=== PATIENT | male | born 2005 | race Caucasian/White ===

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

== ENCOUNTER 2023-01-17 20:27 | Emergency (ER) | payer OTHER, MEDICAID, SELFPAY ==
--- NOTE | ~2023-01-17 | XR_ITS ---
EXAMINATION: XR KNEE, RIGHT CLINICAL INFORMATION: Football injury COMPARISON: None available. TECHNIQUE: Four views of the right knee. FINDINGS: No acute visible fracture or dislocation. Periarticular ossified along the inferior margins patella. A fabella is noted in the posterior compartment. Joint spaces and alignment are otherwise maintained. Trace knee joint effusion. Soft tissues are unremarkable. XR/XR knee RT 3V IMPRESSION: 1. No acute visible fracture or dislocation. 2. Trace knee joint effusion.
[2023-01-17 20:47] VITALS: BP 137/91; PULSE 92; RESP 20; TEMP 36.7; O2SAT 100; BMI 41.9
--- NOTE | 2023-01-17 20:47 | ED_ITS ---
HPI - Extremity Injury (Lower) General Chief Complaint: Extremity Injury, Lower Stated Complaint: right knee pain, injury during football practice Time Seen by Provider: 01/17/23 23:43 Source: patient Mode of arrival: ambulatory Limitations: no limitations History of Present Illness HPI Narrative: Patient comes to the emergency room complaining of right-sided knee pain. Patient states that he was playing football today in college, patient got tackled. Patient states that he has been able to ambulate but hurts doing so. Incident happened today approximately 6 hours ago. Related Data Allergies Allergy/AdvReac Type Severity Reaction Status Date / Time No Known Allergies Allergy Verified 01/17/23 20:50 Review of Systems Review of Systems: Constitutional : No Weight loss, No Fever, No Chills, No Night Sweats, No Fatigue, No Malaise ENT/Mouth : No Hearing loss, No Ear Pain, No Nasal Congestion, No Sinus Pain, No Hoarseness, No sore throat, No Rhinorrhea, No Swallowing Difficulty Eyes: No Eye Pain, No Swelling, No Redness, No Foreign Body, No Discharge, No Vision Changes Cardiovascular : No Chest Pain, No SOB, No Dyspnea on Exertion, No Orthopnea, No Edema, No Palpitations Respiratory : No Cough, No Sputum, No Wheezing, No Smoke Exposure, No Dyspnea Gastrointestinal : No Nausea, No Vomiting, No Diarrhea, No Constipation, No abdominal Pain, No Hematochezia, No Melena Genitourinary : no irregular bleeding, No Dysuria, No Urinary Frequency, No H ematuria, No Urinary Incontinence, No Urgency, No Flank Pain, No Urinary Flow Changes, No Hesitancy Musculoskeletal : Complaining of right knee pain, No Myalgias, No Joint Swelling Skin : No Skin Lesions, No rash Neuro : No Weakness, No Numbness, No Paresthesias, No Loss of Consciousness, No Dizziness, No Headache Psych : No Anxiety/Panic, No Depression, No SI/HI/AH/VH, No Social Issues, Heme/Lymph: No Bruising, No Bleeding,No Lymphadenopathy Endocrine : No Polyuria, No Polydipsia, No Temperature Intolerance PMFSH Past Medical History Surgical History H/O elbow surgery Physical Exam Vital Signs: Vital Signs: Last Vital Signs Temp 98.8 F 01/17/23 23:50 Pulse 80 01/17/23 23:50 Resp 18 01/17/23 23:50 BP 126/73 01/17/23 23:50 Pulse Ox 100 01/17/23 23:50 O2 Del Method Room Air 01/17/23 23:50 BMI result Body Mass Index 41.9 Const: Other: Appearance: Alert. Oriented X3. No acute distress. Eyes: Pupils equal, round and reactive to light. ENT: Pharynx normal. Neck: Normal inspection. Neck supple. No lymph nodes noted. No crepitus CVS: Normal heart rate and rhythm. Pulses normal. Normal S1 and S2 Respiratory: No respiratory distress. Breath sounds normal. No Wheezing. No rales Abdomen: Soft and nontender. No rigidity. No distention. Skin: Skin warm and dry. Normal skin color. Normal skin turgor. Extremities: No lower extremity edema. No Lacerations. No Rash patient ambulatory, no obvious deformity. Knees look symmetric Neuro: Oriented X 3. No motor deficit. No sensory deficit. Moving all extremities. No slurred speech. CN 2 through 12 grossly intact Psych: calm, cooperative, normal affect Course Course Course Narrative: RME: 17yo M c/o R knee injury s/p being tackled playing football this evening. States was tacked with leg facing sideways. Ambulatory with pain. +right knee w/o deformity, mild swelling, +ttp, no deformity XRs ordered Full HPI, ROS and PE to be performed by primary ED provider. Medical Decision Making Medical Decision Making [facility] Narrative: -interpretation of x-ray of the knee: No patellar fracture, no dislocation, normal alignment -I discussed with the patient that his x-rays are normal. However, we cannot see meniscus and ligaments. Patient will try ice and NSAIDs for couple of days, if that does not improve, patient will need to go through his primary care physician or Orthopedics to get an MRI. Differential Diagnosis Differential Diagnoses: The differential diagnosis associated with the presentation includes (Knee contusion, patellar fracture, dislocation) Independent Interpretation I performed an independent interpretation of an: Plain X-Ray Radiology Impression Discussion of test interpretation with radiology: I have reviewed the radiologist's reading. Radiologist Impression: No acute visible fracture or dislocation. Periarticular ossified along the inferior margins patella. A fabella is noted in the posterior compartment. Joint spaces and alignment are otherwise maintained. Trace knee joint effusion. Soft tissues are unremarkable.? XR/XR knee RT 3V IMPRESSION: 1.? No acute visible fracture or dislocation. 2.? Trace knee joint effusion. Discharge Plan Discharge Clinical Impression: Contusion of knee Patient Disposition: Home, Self-Care Instructions: Knee Pain (ED) Additional Instructions: Please follow-up with your primary care physician tomorrow. If you have any worsening or new symptoms, please return to the emergency room or call 911 Stand Alone Forms: Work/School Release
[2023-01-17 23:50] VITALS: BP 126/73; PULSE 80; RESP 18; TEMP 37.1; O2SAT 100
--- NOTE | 2023-01-18 00:23 | PC.NURSE ---
Addendum entered by Ayala Rinaldi 01/18/23 00:24: pt verbalized understanding.. Original Note: Pt a&o, no sign of distress, positive Cms, pt able to ambulate with a steady gait. No sign of distress. Reviewed discharge instructions with pt. pt verbalized
== END 2023-01-18 00:26 | disposition home or self-care (01) ==
PROVIDERS: Emergency Provider Emergency Medicine; PCP Nurse Practitioner Family
DX: S80.01XA Contusion of right knee, initial encounter (principal); W50.0XXA Accidental hit or strike by another person, initial encounter; Y93.61 Activity, american tackle football; Y92.321 Football field as the place of occurrence of the external cause; Y99.9 Unspecified external cause status
CPT/HCPCS: 73562; 99283; 99284